=== PATIENT | male | born 1945 | race Two or more races ===

== ENCOUNTER 2023-08-10 05:13 | Inpatient (IN) | payer OTHER ==
[2023-08-04 10:22] LABS: HEMATOCRIT 37.5 % (39.0-48.0); HEMOGLOBIN 12.3 g/dL (13-16.00); MEAN CELL VOLUME 84.2 fL (80.0-100.00); MEAN CORPUSCULAR HEMOGLOBIN 27.6 pg (27.00-32.0); MEAN CORPUSCULAR HGB CONC 32.8 g/dl (32.0-36.0); PLATELET COUNT 313 K/uL (150-450); RED BLOOD COUNT 4.46 M/uL (4.00-6.00)
[2023-08-04 10:24] LABS: PH,URINE 7.5 (5.0-8.0); URINE APPEARANCE Clear; URINE BILIRRUBIN Negative (NEGATIVE); URINE BLOOD Negative; URINE COLOR Yellow; URINE GLUCOSE Negative (NEGATIVE); URINE LEUKOCYTE Negative; URINE NITRATE Negative; URINE PROTEIN Negative (NEGATIVE); URINE UROBILINOGEN 0.2 E.U./dl
[2023-08-04 10:29] LABS: URINE RBC 2.2 uL (0.0-20.8)
[2023-08-04 10:59] LABS: PARTIAL THROMBOPLASTIN TIME 25.6 SECONDS (22.0-34.0); PROTHROMBIN TIME 10.5 SECONDS (9.0-11.5)
[2023-08-04 11:06] LABS: ALBUMIN 3.9 gm/dL (3.4-5.0); BILIRUBIN TOTAL 0.54 mg/dL (0.3-1.2); CALCIUM 9.5 mg/dL (8.5-10.1); CREATININE SERUM 0.87 mg/dL (0.70-1.30); GFR 84.87; GLOBULINA 3.7 G/DL (2.4-3.5); POTASSIUM 4.5 mEq/L (3.5-5.1); TOTAL PROTEIN 7.6 gm/dL (6.4-8.2)
[2023-08-04 11:11] LABS: URINE BACTERIA 2.5 uL (0.0-1933); URINE EPITHELIAL CELLS 0.4 uL (0.0-38.8); URINE WBC 0.6 uL (0.0-23.2)
[~2023-08-10 05:13] MED LIST: COZAAR50 MG PO; CRESTO PO; GLUMETZA500 MG PO; OMEGA 3 1,0001 EACH PO; SYNTHROID50 MCG PO
[2023-08-10] MEDS ORDERED: ROSUVASTATIN CA20 MG (16:28)
[2023-08-10] MEDS ORDERED: NORVASC2.5 MG (16:28)
[2023-08-10] MEDS ORDERED: APRESOLINE 10MG10 MG (16:28)
[2023-08-10] MEDS ORDERED: FINASTERIDE5 MG (16:28)
[2023-08-10] MEDS ORDERED: OMEGA-3 ACID ETH1 GM (16:28)
== END 2023-08-11 12:02 | disposition home or self-care (01) | DRG 328 ==
LOC: CIR.AMB 05:13 → SURG 08:15 → EDSTATUS 08:15 → CIR.AMB 08:15 → SURH 12:08 → O/R 12:08 → SURH 12:15
PROVIDERS: ADMIT Surgery; ATTEND Surgery
PROC: 8E094CZ Robotic Assisted Procedure of Head and Neck Region, Percutaneous Endoscopic Approach (ICD-10-PCS; 2023-08-10)
PROC: 0BQT4ZZ Repair Diaphragm, Percutaneous Endoscopic Approach (ICD-10-PCS; principal; 2023-08-10 10:00)
DX: K44.9 Diaphragmatic hernia without obstruction or gangrene (principal); Z20.822 Contact with and (suspected) exposure to COVID-19
CPT/HCPCS: 43281; S2900